=== PATIENT | female | born 1945 | race Caucasian/White ===

== ENCOUNTER 2017-07-29 21:33 | Observation (INO) | payer OTHER ==
[2017-07-29 22:07] LABS: BASOPHILS % (AUTO) 1 % (0-3); EOSINOPHILS % (AUTO) 3 % (0-9); HEMATOCRIT 41 % (35-47); HEMOGLOBIN 14.4 gm/dl (12.0-15.5); LYMPHOCYTES % (AUTO) 36.6 % (10-50); MEAN CORPUSCULAR HEMOGLOBIN 30.3 pg (27.0-32.0); MEAN CORPUSCULAR HGB CONC 35.3 gm/dl (32.0-36.0); MEAN CORPUSCULAR VOLUME 86 fL (81-99); MONOCYTES % (AUTO) 8.8 % (0-12); NEUTROPHILS % (AUTO) 50.6 % (37-80)
[2017-07-29] MEDS: SODIUM CHLORIDE 0.9% 1000ML 1,000 ML IV SCH (22:13)
[2017-07-29 22:20] LABS: ALBUMIN 3.3 gm/dl (3.4-5.0); BILIRUBIN,TOTAL 0.5 mg/dl (0.2-1.0); CARBON DIOXIDE 28.7 mEq/L (21-32); CREATININE 0.84 mg/dl (0.60-1.00); POTASSIUM 3.4 mMol/L (3.5-5.1)
[2017-07-30 06:38] VITALS: BP 130/83; PULSE 56; RESP 16; TEMP 97.8; O2SAT 94
[2017-07-30] MEDS ORDERED: PNEUMOC 13-VAL CONJ-DIP CRM/PF 0.5 ML SYRINGE IM ONE (08:10)
[2017-07-30] MEDS: SODIUM CHLORIDE 0.9% 1000ML 1,000 ML IV SCH (08:13)
[2017-07-30] MEDS ORDERED: POTASSIUM CHLORIDE 10 MEQ TER PO SCH (09:00)
[2017-07-30] MEDS ORDERED: ASPIRIN EC 81 MG PO SCH (09:00)
[2017-07-30] MEDS ORDERED: CHOLECALCIFEROL 1,000 IU TAB PO SCH (09:00)
[2017-07-30] MEDS ORDERED: VITAMIN B COMPLEX PO SCH (09:00)
[2017-07-30] MEDS ORDERED: ATORVASTATIN 10 MG TAB PO SCH (21:00)
== END 2017-07-30 08:35 | disposition home or self-care (01) ==
LOC: ED 21:33 → ACUTE CARE 22:33
PROVIDERS: ADMIT Family Medicine; ATTEND Family Medicine
DX: T44.7X1A Poisoning by beta-adrenoreceptor antagonists, accidental (unintentional), initial encounter (principal)
CPT/HCPCS: 80053; 85025; 93005; 93012; 99285; A9270-GY